=== PATIENT | male | born 1955 | race Caucasian/White ===

== ENCOUNTER 2020-11-04 07:24 | Day surgery (SDC) | payer OTHER ==
[2020-11-01 09:55] VITALS: BMI 26.6
[2020-11-04] MEDS ORDERED: ACETAMINOPHEN 500 MG TABLET (FP) PO PRN (08:12)
[2020-11-04] MEDS ORDERED: oxyCODONE HCL 5 MG TABLET PO PRN (08:12)
[2020-11-04] MEDS ORDERED: PROMETHAZINE HCL 25 MG/1 ML VIAL IVPUSH PRN (08:12)
[2020-11-04] MEDS ORDERED: ONDANSETRON 4 MG/2 ML VIAL IVPUSH PRN (08:12)
[2020-11-04] MEDS ORDERED: EPINEPHrine/PF 1 MG/1 ML (1:1,000) AMPULE ONE (08:15)
[2020-11-04] MEDS ORDERED: BUPIVACAINE HCL/PF 2.5 MG/ML - 30 ML VIAL IJ ONE (08:15)
[2020-11-04] MEDS ORDERED: LACTATED RINGERS SOLUTION 1,000 ML IV SCH (08:15)
[2020-11-04] MEDS ORDERED: PROPOFOL 20 ML ONE (08:32)
[2020-11-04] MEDS ORDERED: MIDAZOLAM HCL 2 MG/2 ML SINGLE DOSE VIAL ONE (08:32)
[2020-11-04] MEDS ORDERED: ceFAZolin SODIUM 1 GM VIAL ONE (08:34)
[2020-11-04] MEDS ORDERED: ONDANSETRON 4 MG/2 ML VIAL ONE (09:01)
[2020-11-04] MEDS ORDERED: DEXAMETHASONE SOD PHOSPHATE 4 MG/1 ML VIAL ONE (09:01)
[2020-11-04] MEDS ORDERED: KETOROLAC TROMETHAMINE 30 MG/1 ML VIAL ONE (09:01)
[2020-11-04] MEDS ORDERED: BUPIVACAINE HCL/PF 0.25% (2.5MG/ML) 10 ML VIAL IJ ONE (09:21)
[2020-11-04] MEDS ORDERED: oxyCODONE HCL 5 MG TABLET ONE (10:33)
[2020-11-04] MEDS ORDERED: oxyCODONE HCL 5 MG TABLET PO ONE (10:35)
[2020-11-04 10:44] VITALS: TEMP 97.2
[2020-11-04 11:09] VITALS: BP 111/70; PULSE 55
== END 2020-11-04 11:39 | disposition home or self-care (01) ==
LOC: FASU 07:24
PROVIDERS: ATTEND Orthopaedic Surgery
PROC: 0SBD4ZZ Excision of Left Knee Joint, Percutaneous Endoscopic Approach (ICD-10-PCS; 2020-11-04)
PROC: 0SBD4ZZ Excision of Left Knee Joint, Percutaneous Endoscopic Approach (ICD-10-PCS; 2020-11-04)
PROC: 0SBD4ZZ Excision of Left Knee Joint, Percutaneous Endoscopic Approach (ICD-10-PCS; principal; 2020-11-04 08:30)
DX: S83.242A Other tear of medial meniscus, current injury, left knee, initial encounter (principal); S83.282A Other tear of lateral meniscus, current injury, left knee, initial encounter; M65.862 Other synovitis and tenosynovitis, left lower leg; S83.8X2A Sprain of other specified parts of left knee, initial encounter; X58.XXXA Exposure to other specified factors, initial encounter; Y92.9 Unspecified place or not applicable; Y93.9 Activity, unspecified
CPT/HCPCS: 88304-TC; 94760

== ENCOUNTER 2021-06-25 08:21 | Emergency (ER) | payer OTHER ==
[2021-06-25 08:27] VITALS: TEMP 98; BMI 25.2
[2021-06-25] MEDS ORDERED: ACETAMINOPHEN 1000 MG/100 ML VIAL IVPB ONE (08:28)
[2021-06-25] MEDS ORDERED: LACTATED RINGERS SOLUTION 1000 ML INFUS.BAG IV ONE (08:28)
[2021-06-25] MEDS ORDERED: ACETAMINOPHEN INJECTION 100 ML IVPB ONE (08:34)
[2021-06-25 09:10] LABS: BASO % 1.6 % (0-2.0); EOS % 2.1 % (0-4.5); HEMATOCRIT 47.4 % (35.4-49); HEMOGLOBIN 15.8 GM/dl (11.7-16.9); LYMPH % 22.3 % (8-40); MCH 29.9 pg (25.7-33.7); MCHC 33.3 g/dl (32.0-35.9); MEAN CELL VOLUME 89.9 fl (80-96); MEAN PLT VOLUME 9.3 fl (7.5-11.1); MONO % 5.9 % (3.8-10.2); NEUT % 68.1 % (42.8-82.8); PLATELET COUNT 216 10^3/uL (134-434); RBC 5.27 M/mm3 (4.00-5.60); RDW 12.5 % (11.9-15.9); WHITE BLOOD COUNT 9.3 K/mm3 (4.0-10.8)
[2021-06-25 09:24] LABS: ALBUMIN 3.8 g/dl (3.4-5.0); BILIRUBIN,TOTAL 0.9 mg/dl (0.2-1); CALCIUM 9.1 mg/dl (8.5-10); CREATININE 0.9 mg/dl (0.55-1.3); TOT PROT 6.2 g/dl (6.4-8.2)
[2021-06-25 10:42] VITALS: BP 126/72; PULSE 50
[2021-06-25] MEDS ORDERED: metroNIDAZOLE 250 MG TABLET PO ONE (10:47)
[2021-06-25] MEDS ORDERED: metroNIDAZOLE 250 MG TABLET ONE (10:51)
== END 2021-06-25 10:59 | disposition home or self-care (01) ==
LOC: FER 08:21
PROC: 3E0333Z Introduction of Anti-inflammatory into Peripheral Vein, Percutaneous Approach (ICD-10-PCS; principal; 2021-06-25)
DX: K57.92 Diverticulitis of intestine, part unspecified, without perforation or abscess without bleeding (principal)
CPT/HCPCS: 36415; 74177-TC; 80053; 81003; 85025; 87086; 99285-25; J0131; Q9967

== ENCOUNTER 2022-06-11 09:59 | Day surgery (SDC) | payer OTHER ==
[2022-06-08 15:10] VITALS: BMI 25.8
[2022-06-11 11:41] VITALS: TEMP 97.7
[2022-06-11 12:30] VITALS: BP 110/74; PULSE 71; RESP 18
== END 2022-06-11 12:33 | disposition home or self-care (01) ==
LOC: FASU-ENDO 09:59
PROVIDERS: ATTEND Internal Medicine Gastroenterology
PROC: 0DJD8ZZ Inspection of Lower Intestinal Tract, Via Natural or Artificial Opening Endoscopic (ICD-10-PCS; principal; 2022-06-11 11:05)
DX: Z12.11 Encounter for screening for malignant neoplasm of colon (principal); Z83.71 Family history of colonic polyps; K57.30 Diverticulosis of large intestine without perforation or abscess without bleeding

== ENCOUNTER 2024-07-25 17:00 | Emergency (ER) | payer BC, OTHER ==
[2024-07-25 17:07] VITALS: BP 148/85; PULSE 54; RESP 18; TEMP 97.3; BMI 24.3
[2024-07-25] MEDS: SODIUM CHLORIDE 1,000 ML IV STA (17:35)
[2024-07-25 17:41] LABS: HEMATOCRIT 45.4 % (35.4-49); HEMOGLOBIN 15.3 G/dL (11.7-16.9); MCH 30.4 pg (25.7-33.7); MCHC 33.7 g/dl (32.0-35.9); MEAN CELL VOLUME 90.3 fl (80-96); MEAN PLT VOLUME 9.4 fl (7.5-11.1); PLATELET COUNT 208.6 10^3/uL (134-434); RBC 5.03 10^6/uL (4.00-5.60); RDW 13.5 % (11.9-15.9); WHITE BLOOD COUNT 8.6 10^3/uL (4.0-10.8)
[2024-07-25 18:07] LABS: ALBUMIN 4.2 g/dl (3.4-5.0); ALK PHOS 51 U/L (45-117); ANION GAP 7 mmol/L (4-13); BILIRUBIN,TOTAL 0.7 mg/dl (0.2-1); CALCIUM 9.6 mg/dl (8.5-10.1); CHLORIDE 103 mmol/L (98-107); CO2 28 mmol/L (21-32); CREATININE 0.9 mg/dl (0.6-1.3); GLUCOSE,RANDOM 84 mg/dl (74-106); PLATELET ESTIMATE ADEQUATE; SGOT/AST 17 U/L (15-37); SGPT/ALT 19 U/L (7-52); SODIUM 138 mmol/L (136-145); TOT PROT 6.4 g/dl (6.4-8.2)
[2024-07-25] MEDS ORDERED: ACETAMINOPHEN INJECTION 100 ML ONE (19:58)
[2024-07-25] MEDS: ACETAMINOPHEN 1000 MG/100 ML BAG IVPB ONE (20:10)
[2024-07-25] MEDS: ACETAMINOPHEN 500 MG TABLET (FP) PO ONE (20:20)
[2024-07-25] MEDS ORDERED: PIPERACILLIN/TAZOBACTAM 4.5 GM VIAL IVPB ONE (20:20)
[2024-07-25] MEDS: PIPERACILLIN/TAZOB 4.5 GM 4.5 GM in DEXTROSE 5%-WATER 100 ML IVPB ONE (20:31)
[2024-07-25 21:02] LABS: HIV INTERPRETATION NEGATIVE (NEGATIVE)
== END 2024-07-25 21:03 | disposition home or self-care (01) ==
LOC: FER 17:00
PROC: 3E03329 Introduction of Other Anti-infective into Peripheral Vein, Percutaneous Approach (ICD-10-PCS; principal; 2024-07-25)
PROC: 3E033NZ Introduction of Analgesics, Hypnotics, Sedatives into Peripheral Vein, Percutaneous Approach (ICD-10-PCS; 2024-07-25)
PROC: 3E0337Z Introduction of Electrolytic and Water Balance Substance into Peripheral Vein, Percutaneous Approach (ICD-10-PCS; 2024-07-25)
DX: K57.32 Diverticulitis of large intestine without perforation or abscess without bleeding (principal); R10.32 Left lower quadrant pain; R19.7 Diarrhea, unspecified
CPT/HCPCS: 36415; 74177-TC; 80053; 81003; 83690; 85027; 86803; 87389; 99285-25; J0131; Q9967